=== PATIENT | male | born 1950 | race Caucasian/White ===

== ENCOUNTER 2024-12-24 08:20 | Outpatient (REF) | payer MEDICARE, SELFPAY ==
--- NOTE | ~2024-12-24 | US_ITS ---
CLINICAL HISTORY: EVALUATE VENTRAL HERNIA Targeted ultrasound of epigastric abdominal wall Comparison: None provided Technique: Targeted sonographic imaging, including color Doppler imaging to the area of interest of epigastric abdominal wall at the midline was performed by the rn residential. Multiple business services representative static images were saved for review. Findings/impression: No ventral hernia, mass or fluid collection is visualized. Probable diastasis recti, not well seen, CT abdomen and pelvis can better evaluate if warranted. This document has been electronically signed by: Bertha Pierre MD on 12/25/2024 10:55:06
--- OUTSIDE RECORDS SUMMARY | 2024-12-24 08:45 | XMS_ITS | Encounter Summary ---
Author Organization [facility] Address [address] [place] [address] Phone Care Team Providers Care Plant Associate Name Role Phone Rocky Mora DO Primary Care Provider Encounter Details Date Type Department Care Team (Late st Contact Info) Description 03/08/2022 Telephone [facility] [address] [place] [address] Annemarie Chino MD Social History Tobacco Use Types Packs/Day Years Used Date Smoking Tobacco: Never Smokeless Tobacco: Never Alcohol Use Standard Drinks/Week Comments Yes 0 (1 standard drink = 0.6 oz pure alcohol) Alcoholic Drinks/day: Occasional social drink Sex and Gender Information Value Date Recorded Sex Assigned at Not on file Legal Sex Male 4:51 PM EST Gender Identity Not on file Sexual Orientation Not on file documented as of this encounter Miscellaneous Notes * Telephone Encounter - Saskia Morton - 03/15/2022 8:35 AM EST Patient has been scheduled for Tuesday * Telephone Encounter - Saskia Morton - 03/11/2022 1:39 PM EST Patient is unable to come in on Tuesday. Please advise as to another date. * Telephone Encounter - Saskia Morton - 03/10/2022 2:[address] Miller's schedule is full for all days that she is working at [employer]. Please provide an alternative. * Telephone Encounter - Lucinda Sandoval - 03/08/2022 2:13 PM EST Pts dtr Jahaira called, the pt has been having really bad Tinnitus. His pcp suggested she check in with us because when he foes to stand up is when the tinnitus reacts the worst and it makes his heartfeel like its skipping a beat. His pcp thinks this might be due to s change in his bp when getting up. Jahaira requests that this be sent to both the magnetic resonance technologist provider and so she is aware on Tuesday. Please call her back at # [phone] Thank you documented in this encounter Plan of Treatment Upcoming Encounters Date Type Department Care Team (Late st Contact Info) Description 01/01/2025 11:45 AM EST Office Visit [facility] [address] [address] Yuli John ARNP [address] [address] documented as of this encounter Visit Diagnoses Not on filedocumented in this encounter Care Teams Plant Associate Relationship Specialty Start Date End Date Rocky Mora DO [address] [place] [address] PCP - General Internal Medicine 01/02/24 documented as of this encounter
--- OUTSIDE RECORDS SUMMARY | 2024-12-24 08:45 | XMS_ITS | Clinical Summary ---
Author Organization [address] Address [address] [place] [address] Phone Care Team Providers Care Occupational Therapist Assistants Name Role Phone Zaire Romero MD Primary Care Provider [phone] Surgical History Surgery Date Site/Laterality Comments OTHER SURGICAL HISTORY 05/20/2016 Left PROCEDURE: [facility] CORRECTION [facility]; COMMENT: toes 2-5 left foot OTHER SURGICAL HISTORY 12/22/2017 Right PROCEDURE: [place] CORRECTION [place]; COMMENT: toes 1,2,3,4,5 Social History Tobacco Use Types Packs/Day Years Used Date Smoking Tobacco: Never Smokeless Tobacco: Never Alcohol Use Standard Drinks/Week Comments Not Asked 0 (1 standard drink = 0.6 oz pur e alcohol) Sex and Gender Information Value Date Recorded Sex Assigned at Not on file Legal Sex Male 12:21 AM EST Gender Identity Not on file Sexual Orientation Not on file Obstetrics History Last Filed Vital Signs Vital Sign Reading Time Taken Comments Blood Pressure 122/82 06/21/2023 8:44 AM EDT Pulse - - Temperature - - Respiratory Rate - - Oxygen Saturation - - Inhaled Oxygen Concentration - - Weight 105 kg (232 lb) 06/21/2023 8:44 AM EDT Height 175.3 cm (5' 9 ) 06/21/2023 8:44 AM EDT Body Mass Index 34.26 06/21/2023 8:44 AM EDT Plan of Treatment Health Maintenance Due Date Last Done Comments Colorectal Cancer Screening: Colonoscopy 1950 Pneumococcal Vaccine: 50+ Years (1 of 1 - PCV) 02/11/2002 Zoster Vaccines (1 of 2) 02/11/2002 DTaP,Tdap,and Td Vaccines (2 - Td or Tdap) 02/16/2006 02/17/1996 Falls Risk Assessment 09/13/2023 Hepatitis C Screening 09/13/2023 Medicare Annual Wellness Visit 09/13/2023 Social Influencers of Health Screening 09/13/2023 Depression Screening 02/15/2024 COVID-19 Vaccine ( season) 2024 02/09/2022, 07/17/2021, 12/30/2020, Additional history exists Influenza Vaccine (#1) 2024 , 12/22/2021, 12/10/2020, Additional history exists Hypertension/CHF/CAD Annual BMP Blood Test 05/28/2025 05/28/2024 RSV Immunization Adult Patients (1 - 1-dose 75+ series) 02/11/2027 Cholesterol Screening (Lipid Panel) 05/28/2029 05/28/2024 HIB Vaccines Aged Out No longer eligi ble based on patient's age to complete this topic HPV Vaccines Aged Out No longer eligi ble based on patient's age to complete this topic Hepatitis A Vaccines Aged Out No long er eligible based on patient's age to complete this topic Hepatitis B Vaccines Aged Out No long er eligible based on patient's age to complete this topic IPV Vaccines Aged Out No longer eligi ble based on patient's age to complete this topic MMR Vaccines Aged Out No longer eligi ble based on patient's age to complete this topic Meningococcal ACWY Vaccine Aged Out N o longer eligible based on patient's age to complete this topic Meningococcal B Vaccine Aged Out No l onger eligible based on patient's age to complete this topic RSV Immunization Patients Under 20 months Aged Out No longer eligible based on patient's age to complete this topic Varicella Vaccines Aged Out No longer eligible based on patient's age to complete this topic Procedures Procedure Name Priority Date/Time Associated Diagnosis Comments BASIC METABOLIC PANEL Routine 05/28/2024 8:39 AM EDT Essential hypertension, malignant Ischemic cardiomyopathy Pure hypercholesterolemia LIPID PANEL WITH REFLEX TO DIRECT LDL Routine 05/28/2024 8:39 AM EDT Essential hypertension, malignant Ischemic cardiomyopathy Pure hypercholesterolemia from Last 3 Months or Most Recently Relevant to Health Maintenance Results * (ABNORMAL) Lipid panel with reflex to direct LDL (05/28/2024 8:39 AM EDT) Cholesterol 211(H) 0 - 200 mg/dL LAB CHEMISTRY METHOD 05/28/2024 12:22 PM EDT [facility] Triglycerides 259(H) 0 - 150 mg/dL LAB CHEMISTRY METHOD 05/28/2024 12:22 PM EDT [facility] HDL 47 >=40 mg/dL LAB CHEMISTRY METHOD 05/28/2024 12:22 PM EDT [facility] LDL Calculated 112(H) 0 - 100 mg/dL LAB CHEMISTRY METHOD 05/28/2024 12:22 PM EDT [facility] VLDL Cholesterol Moe 51.8 mg/dL LAB CHEMISTRY METHOD 05/28/2024 12:22 PM EDT [facility] Non HDL Chol. (LDL+VLDL) 164(H) <145 mg/dL LAB CHEMISTRY METHOD 05/28/2024 12:22 PM EDT [facility] Chol/HDL Ratio 4.5(H) 0.0 - 4.4 LAB CHEMISTRY METHOD 05/28/2024 12:22 PM T [facility] Blood Venous blood specimen / Unknown Venipuncture / Unknown 05/28/2024 8:39 AM EDT 05/28/2024 8:39 AM EDT us Evans Davila PAPER COATING SUPERVISOR LAB BLOOD ORDERABLES Final Resul t [facility] [address] [place] [address], * (ABNORMAL) Basic metabolic panel (05/28/2024 8:39 AM EDT) Pathologist [facility] Sodium 138 133 - 145 mmol/L LAB CHEMISTRY METHOD 05/28/2024 12:20 PM EDT [facility] Potassium 4.8 3.5 - 5.5 mmol/L LAB CHEMISTRY METHOD [facility] Chloride 104 96 - 110 mmol/L LAB CHEMISTRY METHOD 05/28/2024 12:20 PM [facility] CO2 28 21 - 32 mmol/L LAB CHEMISTRY METHOD 05/28/2024 12:20 PM [facility] Anion Gap 6 3 - 11 LAB CHEMISTRY METHOD 05/28/2024 12:20 PM [facility] Glucose 108(H) 70 - 100 mg/dL LAB CHEMISTRY METHOD 05/28/2024 12:20 PM [facility] BUN 29(H) 5 - 25 mg/dL LAB CHEMISTRY METHOD 05/28/2024 12:20 PM [facility] Creatinine 1.21 0.70 - 1.30 mg/dL LAB CHEMISTRY METHOD 05/28/2024 12:20 PM [facility] eGFR 64 >=60 mL/min/1. 73m2 LAB CHEMISTRY METHOD 05/28/2024 12:20 PM [facility] Comment:Calculation based on the Chronic Kidney Disease Epidemiology Collaboration (CKD-EPI) equation refit without adjustment for race. BUN/Creatinine Ratio 24.0 LAB CHEMISTRY METHOD 05/28/2024 12:20 PM [facility] Calcium 9.3 8.5 - 10.5 mg/dL LAB CHEMISTRY METHOD 05/28/2024 12:20 PM [facility] Blood Venous blood specimen / Unknown Venipuncture / Unknown 05/28/2024 8:39 AM EDT 05/28/2024 8:39 AM EDT us Evans Davila PAPER COATING SUPERVISOR LAB BLOOD ORDERABLES Final Resul t [facility] [address] [place] [address], from Last 3 Months or Most Recently Relevant to Health Maintenance Insurance [facility] [employer] Care Teams Occupational Therapist Assistants Relationship Specialty Start Date End Date Zaire Romero MD [address] [place] [phone] PCP - General Internal Medicine 12/29/15
--- OUTSIDE RECORDS SUMMARY | 2024-12-24 08:45 | XMS_ITS | Encounter Summary ---
Author Organization [facility] Address [address] [address] Phone Care Team Providers Care Radiator Repairer Name Role Phone Rocky Mora DO Primary Care Provider [phone] Reason for Visit * Reason Comments Med Refill Encounter Details Date Type Department Care Team (Late Contact Info) Description 12/20/2024 Refill [facility] [address] [place] [address] Yuli John ARNP [address] [address] Social History Tobacco Use Types Packs/Day Years [...] on file documented as of this encounter Plan of Treatment Upcoming Encounters Date Type Department Care Team (Late Contact Info) Description 01/01/2025 11:45 AM EST Office Visit [facility] [address] [address] Yuli John ARNP [address] [address] documented as of this encounter Visit Diagnoses Not on filedocumented in this encounter Care Teams Radiator Repairer Relationship Specialty Start Date End Date Rocky Mora DO [address] [place] [address] PCP - General Internal Medicine 01/02/24 documented as of this encounter
--- OUTSIDE RECORDS SUMMARY | 2024-12-24 08:45 | XMS_ITS | Clinical Summary ---
Author Organization [facility] Address [address] [address] Phone Care Team Providers Care Wheel Presser Name Role Phone Rocky Mora DO Primary Care Provider [phone] Allergies No known active allergies Medications omeprazole (PriLOSEC) [address] capsule Take 1 capsule by mouth 1 (one) time each day Active Glucosamine Sulfate 500 MG tablet Active escitalopram (LEXAPRO) 10 MG tablet Take 10 mg by mouth 1 (one) time each day Active atorvastatin (LIPITOR) 20 MG tablet Take 1 tablet by mouth 1 (one) time each day Active aspirin (ST MINERVA) 81 MG EC tablet Take 1 tablet by mouth 1 (one) time each day Active ascorbic acid (VITAMIN C) 500 MG tablet Take 1 tablet by mouth 1 (one) time each day Active [place]-3 Fatty Acids (Fish Oil Concentrate) 1000 MG capsule Take 1 capsule by mouth 1 (one) time each day Active Misc Natural Products (Prostate Health) capsule Take 1 capsule by mouth 1 (one) time each day Active Multiple Vitamins-Rehabilitation Consultant als (CENTRUM ADULTS PO) Take 1 tablet by mouth 1 (one) time each day Active alpha tocopherol (VITAMIN E) 1000 units capsule Take 1 capsule by mouth 1 (one) time each day Active predniSONE (DELTASONE) 10 MG tablet 08/17/19 21 Active clonazePAM (KlonoPIN) 0.5 MG tablet Take 0.5 mg by mouth 1 (one) time each day PRN Active Magnesium 400 MG tablet Take by mouth Active mirtazapine (REMERON) 7.5 MG tablet Take 7.5 mg by mouth every night Active carvedilol (Coreg) 6.25 MG tablet Take 1 tablet (6.25 mg total) by mouth in the morning and 1 tablet (6.25 mg total) in the evening. 180 tablet 3 02/18/19 24 Active lisinopril 40 MG tablet Take 1 tablet (40 mg total) by mouth 1 (one) time each day 90 tablet 3 02/18/19 24 Active spironolactone (ALDACTONE) 50 MG tablet Take 1 tablet (50 mg total) by mouth 1 (one) time each day 90 tablet 3 02/18/19 24 Active hydrOXYzine (ATARAX) 25 MG tablet Take 25 mg by mouth 3 (three) times a day if needed for itching Pt only takes it as needed . Not taking 3 times a day. Active NIFEdipine CC (ADALAT CC) 30 MG 24 hr tablet TAKE 1 TABLET BY MOUTH EVERY DAY BEFORE BREAKFAST 90 tablet 3 12/21/19 25 Active NIFEdipine CC (ADALAT CC) 30 MG 24 hr tablet Take 1 tablet (30 mg total) by mouth 1 (one) time each day before breakfast Do not crush, chew, or split. 90 tablet 3 02/07/20 24 025 Discontinued Active Problems Problem Noted Date Diagnosed Date Chronic kidney disease 03/04/2023 Anxiety disorder 03/16/2022 Gastroesophageal reflux disease 03/16/2022 Hypercholesterolemia 03/16/2022 Hypertensive disorder 04/12/2020 Encounters Date Type Department Care Team Description 12/20/2024 Refill [facility] [address] [address] Yuli John ARNP from Last 3 Months Immunizations Immunization Administration Dates Next Due Td, Unspecified 02/17/1996 Family History Medical History Relation Comments Cancer Father stomach Hypertension Father Hypertension Mother Cancer Sibling 1 stomach Dementia Sibling 2 Hypertension Sibling 3 Relation Status Comments Father Mother Sibling 1 Sibling 2 Sibling 3 Social History Tobacco Use Types Packs/Day Years Used Date Smoking Tobacco: Never Smokeless Tobacco: Never Tobacco Cessation:Counseling Given: Not Answered Alcohol Use Standard Drinks/Week Comments Yes 0 (1 standard drink = 0.6 oz pure alcohol) Alcoholic Drinks/day: Occasional social drink Sex and Gender Information Value Date Recorded Sex Assigned at Not on file Legal Sex Male 4:51 PM EST Gender Identity Not on file Sexual Orientation Not on file Last Filed Vital Signs Vital Sign Reading Time Taken Comments Blood Pressure 118/80 01/02/2024 11:54 AM EST Pulse 71 01/02/2024 11:54 AM EST Temperature - - Respiratory Rate 14 11/29/2018 12:00 PM EDT Oxygen Saturation 95% 01/02/2024 11:54 AM EST Inhaled Oxygen Concentration - - Weight 107 kg (236 lb) 01/02/2024 11:54 AM EST Height 180.3 cm (5' 11 ) 01/05/2021 3:54 PM EST Body Mass Index 32.92 01/05/2021 3:54 PM EST Plan of Treatment Upcoming Encounters Date Type Department Care Team (Late st Contact Info) Description 01/01/2025 11:45 AM EST [facility] Visit [facility] [address] [address] Yuli John ARNP [address] [address] Health Maintenance Due Date Last Done Comments Pneumococcal Vaccine: 50+ Ye ars (1 of 2 - PCV) 02/11/1971 Colorectal Cancer Screening: Annual FOBT 02/11/2001 Colorectal Cancer Screening: Colonoscopy 02/11/2001 Colorectal Cancer Screening: Sigmoidoscopy 02/11/2001 Influenza Vaccine (#1) 2024 Hepatitis B Vaccine Aged Out No longe r eligible based on patient's age to complete this topic Insurance [facility] Medicare [facility] Medicare Care Teams Wheel Presser Relationship Specialty Start Date End Date Rocky Mora DO [address] [place] [address] PCP - General Internal Medicine 01/02/24
--- OUTSIDE RECORDS SUMMARY | 2024-12-24 08:45 | XMS_ITS | Encounter Summary ---
Author Organization [facility] Address [address] [facility] [place] [address] Phone Care Team Providers Care Regional Clinical Research Associate Name Role Phone EmekarosalinaalfredoRocky olivas Primary Care Provider [phone] Encounter Details Date Type Department Care Team (Late st Contact Info) Description 02/21/2024 Procedure Pass [facility] Endoscopy Admitting Dept Virtual Department [address] [place] [address] Social History Tobacco Use Types Packs/Day Years Used Date Smoking Tobacco: Never Smokeless Tobacco: Never Alcohol Use Standard Drinks/Week Comments Not Currently 0 (1 standard drink = 0.6 oz pur e alcohol) 1-2 glasses of wine daily Education Answer Date Recorded Are you interested in more education? Not on ramesh e 11/16/2023 Are you concerned about learning? Not on file 11/16/2023 No 11/16/2023 No 11/16/2023 Digital Access Answer Date Recorded No 11/16/2023 No 11/16/2023 Reliable internet access at home? Not on file 11/16/2023 Device with a working camera? Not on file Intimate Partner Violence Answer Date R ecorded Are you denied basic needs s uch as food, clothing, or medical care? No 02/17/2024 In the past 12 months have y ou been in a relationship with a person who hurts, threatens, or tries to control you? No 02/17/2024 Are you denied basic needs s uch as food, clothing, or medical care? No 02/17/2024 In the past 12 months have y ou been in a relationship with a person who hurts, threatens, or tries to control you? No 02/17/2024 Sex and Gender Information Value Date Recorded Sex Assigned at Not on file Legal Sex Male 5:42 PM EST Gender Identity Not on file Sexual Orientation Not on file documented as of this encounter Plan of Treatment Not on file documented as of this encounter Visit Diagnoses Not on filedocumented in this encounter Care Teams Regional Clinical Research Associate Relationship Specialty Start Date End Date Rocky Mora DO [address] [place] [id number] PCP - General Internal Medicine 02/21/24 documented as of this encounter Additional Source Comments The information contained in this document represents components of the legal health record. It is not the complete legal health record.[facility]
--- OUTSIDE RECORDS SUMMARY | 2024-12-24 08:45 | XMS_ITS | Clinical Summary ---
Author Organization [facility] Address [address] [address] Phone Care Team Providers Care Registered Client Associate Name Role Phone Humphrey Velázquez DO Primary Care Provider [phone] Allergies No known active allergies Medications atorvastatin (LIPITOR) 20 MG tablet Take 1 tablet by mouth every morning. 4 Active mirtazapine (REMERON) 7.5 MG tablet Take 7.5 mg by mouth nightly at bedtime. 4 Active escitalopram oxalate (LEXAPRO) 10 MG tablet Take 10 mg by mouth daily. 4 Active NIFEdipine (ADALAT CC) 30 MG 24 hr tablet Take 30 mg by mouth daily. 4 Active lisinopril (PRINIVIL,ZESTRIL) 40 MG tablet Take 1 tablet by mouth every morning. 4 Active spironolactone (ALDACTONE) 50 MG tablet Take 1 tablet by mouth every morning. 4 Active omeprazole (PRILOSEC) 40 MG capsule Take 40 mg by mouth daily. 4 Active aspirin 81 mg chewable tablet Take 81 mg by mouth daily. Active clonazePAM (KLONOPIN) 0.5 MG disintegrating tablet Take 0.5 mg by mouth 2 (two) times a day as needed for anxiety. Active hydrOXYzine (ATARAX) 25 MG tablet Take 25 mg by mouth 3 (three) times a day as needed for itching. Active Medication-Free Text Take 1 tablet by mouth daily. prevagan Active MAGNESIUM ORAL Take 1 tablet by mouth daily. Active glucosamine sulfate (GLUCOSAMINE ORAL) Take 1 tablet by mouth daily. Active vitamin E acetate (VITAMIN E ORAL) Take 1 capsule by mouth daily. Active ascorbic acid (VITAMIN C ORAL) Take 1 tablet by mouth daily. Active docosahexaenoic acid/epa (FISH OIL ORAL) Take 1 capsule by mouth daily. Active Medication-Free Text Take 1 tablet by mouth daily. allertec Active Active Problems No known active problems Social History Tobacco Use Types Packs/Day Years Used Date Smoking Tobacco: Never Smokeless Tobacco: Never Tobacco Cessation:Counseling Given: Not Answered Alcohol Use Standard Drinks/Week Comments Not Currently [...] Sign Reading Time Taken Comments Blood Pressure 132/85 02/21/2024 11:15 AM EST Pulse 81 02/21/2024 11:15 AM EST Temperature 36 C (96.8 F) 02/21/2024 11:03 AM EST Respiratory Rate 15 02/21/2024 11:15 AM EST Oxygen Saturation 96% 02/21/2024 11:15 AM EST Inhaled Oxygen Concentration - - Weight 105.7 kg (233 lb) 02/17/2024 11:53 AM EST Height 177.8 cm (5' 10 ) 02/17/2024 11:53 AM EST Body Mass Index 33.43 02/17/2024 11:53 AM EST Plan of Treatment Health Maintenance Due Date Last Done Comments Adult Td,Tdap Booster 1950 CREATININE LEVEL 1950 LIPID PANEL 1950 POTASSIUM LEVEL 1950 DEPRESSION SCREENING 1964 HEPATITIS C SCREENING 02/11/1970 COLOGUARD 02/11/1997 FIT TEST 02/11/1997 FOBT 02/11/1997 SIGMOIDOSCOPY 02/11/1997 VIRTUAL COLONOSCOPY 02/11/1997 PNEUMOCOCCAL VACCINES (50+ years) (1 of 1 - PCV) 02/11/2002 ZOSTER VACCINES (1 of 2) 02/11/2002 INFLUENZA VACCINE (#1) 2024 , 12/22/2021, 12/10/2020, Additional history exists COVID-19 VACCINE (2024- season) 2024 02/09/2022, 07/17/2021, 12/30/2020, Additional history exists RSV VACCINE (1 - 1-dose 75+ series) 02/11/2027 COLONOSCOPY 02/20/2034 02/21/2024 COLORECTAL CANCER SCREENING 02/20/2034 SMOKING STATUS SCREENING (Once After 26 Yrs) Completed 02/21/2024 HEPATITIS A VACCINES Aged Out No long er eligible based on patient's age to complete this topic HIB VACCINES Aged Out No longer eligi ble based on patient's age to complete this topic IPV VACCINES Aged Out No longer eligi ble based on patient's age to complete this topic MENINGOCOCCAL VACCINES (ACWY) Aged Out No longer eligible based on patient's age to complete this topic MENINGOCOCCAL VACCINES (B) Aged Out N o longer eligible based on patient's age to complete this topic Medical Devices Not on file Procedures Procedure Name Priority Date/Time Associated Diagnosis Comments ENDOSCOPY, COLON 02/21/2024 10:4 0 AM EST from Last 3 Months or Most Recently Relevant to Health Maintenance Results * ENDOSCOPY, COLON (02/21/2024 10:40 AM EST) Narrative Transcriptions Alphonso Jorge MD - 02/21/2024 10:40 AM EST [facility] Patient Name: Seven Hill Attending MD:: ALPHONSO JORGE MD, Procedure Date: 02/21/2024 10:40 AM Date of : 1950 Age: 74 Admit Type: Outpatient Gender: Male Room: [place] [address] Referring MD: HUMPHREY VELÁZQUEZ Exam Type: Colonoscopy Indications: Screening for colorectal malignant neoplasm, Last colonoscopy 10 years ago Medications: Monitored Anesthesia Care Procedure: Informed consent was obtained from the patientafter discussion of the indications, limitations, alternatives, benefits, and risks of the procedure. Risks specifically discussed include but are not limited to medication reactions, missed lesions, bleeding, perforation, or the need for emergent surgery. Throughout the procedure, the patient's blood pressure, pulse, end-tidal CO2, and oxygensaturations were monitored continuously. The Olympus adult variable colonoscope [id number] #5 was introduced through the anus and advanced to the cecum, identified by the appendiceal orifice. The colonoscopy was performed without difficulty. The patient tolerated the procedure well. The qualityof the bowel preparation was good. Anatomicallandmarks were photographed. Complications: No immediate complications. Estimated blood loss:None. Findings: The perianal and digital rectal examinations were normal. 2 plus internal hemorrhoids were noted. Many small-mouthed diverticula were found in the sigmoid colon. The rectum, recto-sigmoid colon, sigmoid colon, descending colon, splenic flexure, transversecolon, hepatic flexure, ascending colon, cecum,appendiceal orifice, ileocecal valve and rectum (onretroflexion) appeared normal. Impression: - Diverticulosis in the sigmoid colon. - The rectum (on retroflexion), rectum, sigmoidcolon, descending colon, splenic flexure, transversecolon, hepatic flexure, ascending colon, cecum,recto-sigmoid colon, ileocecal valve and appendiceal orifice are normal. - No specimens collected. Recommendation: - Discharge patient to home. - High fiber diet. - Continue present medications. - Repeat discussion about colonoscopy in 10 yearsfor screening purposes. - You have diverticulosis so please eat a highfiber diet. ALPHONSO JORGE MD 02/21/2024 11:03:23 AM This report has been signed electronically. Number of Addenda: 0 Note Initiated On: 02/21/2024 10:40 AM Procedure Code(s): --- Professional --- 08484, Colonoscopy, flexible; diagnostic, including collection of specimen(s) by brushing or washing, when performed (separateprocedure) --- Technical --- 93883, Colonoscopy, flexible; diagnostic, including collection of specimen(s) by brushing or washing, when performed (separateprocedure) Diagnosis Code(s): --- Professional --- Z12.11, Encounter for screening for malignantneoplasm of colon K57.30, Diverticulosis of large intestine without perforation or abscess without bleeding --- Technical --- Z12.11, Encounter for screening for malignantneoplasm of colon K57.30, Diverticulosis of large intestine without perforation or abscess without bleeding CPT copyright 2021 [employer]. All rights reserved. The codes documented in this report are preliminary and upon air compressor mechanic reviewmay be revised to meet current compliance requirements. Procedure Date: 02/21/2024 10:40:19 AM [address] [place] [address] Humphrey Velázquez DO GI PROCEDURE ORDERABLES Final Result from Last 3 Months or Most Recently Relevant to Health Maintenance Insurance MEDICARE PART A & B MEDICARE PART A & B MEDICARE PART A & B MEDICARE PART A & B MEDICARE PART A & B MEDICARE PART A & B Member Subscriber Plan / Payer ( fective 2017-Present) Name:Seven Hill Member ID:[id number] Relation to Subscriber:Self Name:Seven Hill Subscriber ID:[id number] Payer ID:[id number] Group ID:Not on file Type:Medicare Address: [facility] [employer] [email or web address] [facility] [address] [place] [address] Care Teams Registered Client Associate Relationship Specialty Start Date End Date Gabrieldeisy Humphrey [address] [place] [address] [address] [place] [address] PCP - General Internal Medicine 02/21/24 Additional Source Comments The information contained in this document represents components of the legal health record. It is not the complete legal health record.[facility]
== END 2024-12-24 08:21 | disposition home or self-care (01) ==
LOC: HO.US 08:20
PROVIDERS: PCP Internal Medicine; Visit Provider Internal Medicine
DX: K43.9 Ventral hernia without obstruction or gangrene (principal)
CPT/HCPCS: 76705

== ENCOUNTER → 2024-12-24 08:30 | Outpatient (BNV) | payer MEDICARE, SELFPAY | PROVIDERS: PCP Internal Medicine; Visit Provider Radiology Diagnostic Radiology | DX: K43.9 Ventral hernia without obstruction or gangrene (principal) | CPT/HCPCS: 76705 ==

== ENCOUNTER 2024-12-27 09:08 | Outpatient (AMB) | payer MEDICARE, SELFPAY ==
--- NOTE | 2024-12-27 09:23 | A.OFFVIS_ITS ---
Vital Signs 12/27/24 09:32 Height 5 ft 11 in Weight 240 lb BMI 33.5 Intake Visit Reasons: Ventral hernia Intake Note: Patient presents for an assessment for ventral hernia. Pt c/o; reports no changes in bowel habits, reports good appetite, ventral hernia, reports back pain when walking. DI: Abd US 12/25/2024 Detective Bureau Chief Required: Yes Detective Bureau Chief Language: Upper Sorbian Detective Bureau Chief Services: Detective Bureau Chief Offered & Declined Accompanied by: Spouse Allergies No Known Allergies Allergy (Verified 12/27/24 09:33) Medication List - Last Reconciled 12/27/24 by Monty Burgos MD ascorbate calcium (vitamin C) 500 mg PO DAILY aspirin (Adult Low Dose Aspirin) 81 mg PO DAILY atorvastatin 40 mg PO DAILY bisacodyl 20 mg PO BEDTIME escitalopram oxalate 15 mg PO DAILY glucosamine HCl 500 mg PO DAILY krill oil mg PO lisinopril 40 mg PO DAILY magnesium 200 mg PO DAILY mirtazapine 7.5 mg PO BEDTIME nifedipine ER 30 mg PO QAM omega 6-kgn-ikx-fish oil 60-90-500 mg (Fish Oil) 1 cap PO DAILY omeprazole 40 mg PO DAILY polyethylene glycol 3350 17 grams PO DAILY vei-Mvojvw-cdut-pzkz-V8-Q8-Zn 30-25-62.5 mg (trip.me Men's) caps PO spironolactone 50 mg PO DAILY vitamin E (dl, acetate) 45 mg PO DAILY HPI HPI Ventral hernia: Details: 74 year old male referred for a question of an epigastric hernia. He has noticed this lump on his upper abdomen for many years. He denies any GI complaints. He denies any pain or tenderness on the area. [facility] Medical History (Updated 12/27/24 @ 09:47 by Monty Burgos MD) Diastasis recti Surgical History History of colonoscopy Hx of surgical procedure Hx of surgical procedure Social History Alcohol intake: current Alcohol intake frequency: 0-2 drinks per day Patient Tobacco Use Status: Never used Tobacco Review of Systems Const Denies chills and Denies fever(s) Card Denies chest pain, Denies dyspnea and Denies dyspnea on exertion Resp Denies cough, Denies dyspnea and Denies dyspnea on exertion GI Denies hematochezia and Denies change in bowel habits Denies hematuria and Denies difficulty urinating Musc Denies back pain and Denies limited range of motion Neuro Denies focal weakness and Denies convulsions Psych Denies depression and Denies mood swings Physical Exam Vital Signs: BMI result Body Mass Index 33.5 Const Other: Obese General: comfortable and no acute distress Orientation/consciousness: patient oriented x3 Neck Neck: Yes no lymphadenopathy Resp Auscultation: clear to auscultation bilaterally Cardio Rhythm: regular rhythm GI Other: Diastasis recti in the upper abdomen, no hernia Palpation (GI): Soft to palpation, nontender and no guarding Neuro General: patient oriented x3 Assessment & Plan Assessment & Plan (1) Diastasis recti: Code(s): M62.08 - Separation of muscle (nontraumatic), other site Category: Medical Plan: 74-year-old male referred for a protuberance of the upper abdomen. This has actually a diastasis recti. I explained to him and his that this has not require any surgical intervention. He does not have any hernia. I have reviewed his ultrasound and this does not show any hernia as well I did advise him on the benefits of weight loss as his body mass index is high. He can follow up on a p.r.n. basis. Coding Level of Care Code New Pt Level 3 (30217) Diagnoses Diastasis recti M62.08
[2024-12-27 09:32] VITALS: BMI 33.5
--- OUTSIDE RECORDS SUMMARY | 2024-12-27 09:59 | XMS_ITS | Clinical Summary ---
Author Organization [facility] Address [address] [address] Phone Care Team Providers Care Maintenance Person Name Role Phone Rocky Mora DO Primary Care Provider [phone] Allergies No known active allergies Medications omeprazole [...] mouth 1 (one) time each day Active [place]-3 Fatty Acids (Fish Oil Concentrate) 1000 MG capsule Take 1 capsule by mouth 1 (one) time each day Active Misc Natural Products (Prostate Health) capsule Take 1 capsule by mouth 1 (one) time each day Active Multiple Vitamins-Insurance Biller als (CENTRUM ADULTS PO) Take 1 tablet [...] 12/20/2024 Refill [facility] [address] [address] Yuli John ARNP from Last 3 Months [...] Office Visit [facility] [address] [address] Yuli John ARNP [address] [address] Health Maintenance Due Date Last Done Comments Pneumococcal Vaccine: 50+ Ye ars (1 of 2 - PCV) 02/11/1971 Colorectal Cancer Screening: Annual FOBT 02/11/2001 Colorectal Cancer Screening: Colonoscopy 02/11/2001 Colorectal Cancer Screening: Sigmoidoscopy 02/11/2001 Influenza Vaccine (#1) 2024 Hepatitis B Vaccine Aged Out No longe r eligible based on patient's age to complete this topic Insurance [facility] Medicare [facility] Medicare Care Teams Maintenance Person Relationship Specialty Start Date End Date Rocky Mora DO [address] [place] [address] PCP - General Internal Medicine 01/02/24
--- OUTSIDE RECORDS SUMMARY | 2024-12-27 10:02 | XMS_ITS | Encounter Summary ---
Author Organization [facility] Address [address] [place] [id number] Phone Care Team Providers Care Merchandise Shopper Name Role Phone EmekarosalinaalfredoRocky olivas Primary Care Provider [phone] Encounter Details Date Type Department Care Team (Late st Contact Info) Description 02/21/2024 Procedure Pass [facility] Endoscopy Admitting Dept Virtual Department [address] [place] [address] Social History Tobacco Use Types Packs/Day Years [...] on filedocumented in this encounter Care Teams Merchandise Shopper Relationship Specialty Start Date End Date Rocky Mora DO [address] [place] [address] PCP - General Internal Medicine 02/21/24 documented as of this encounter Additional Source Comments The information contained in this document represents components of the legal health record. It is not the complete legal health record.[facility]
--- OUTSIDE RECORDS SUMMARY | 2024-12-27 10:02 | XMS_ITS | Encounter Summary ---
Author Organization [facility] Address [address] [place] [address] Phone Care Team Providers Care Molder Setter Name Role Phone Rocky Mora DO Primary Care Provider [phone] Encounter Details Date Type Department Care Team (Late st Contact Info) Description 03/08/2022 Telephone [facility] [address] [place] [address] Annemarie Chino MD Social History [...] all days that she is working at [employer]. Please provide an alternative. * Telephone Encounter [...] that this be sent to both the electrophonic engineer provider and so she is aware on Tuesday. Please call her back at # [phone] Thank you documented in this encounter Plan of Treatment Upcoming Encounters Date Type Department Care Team (Late st Contact Info) Description 01/01/2025 11:45 AM EST Office Visit [facility] [address] [address] Yuli John ARNP [address] [address] documented as of this encounter Visit Diagnoses Not on filedocumented in this encounter Care Teams Molder Setter Relationship Specialty Start Date End Date Rocky Mora DO [address] [place] [address] PCP - General Internal Medicine 01/02/24 documented as of this encounter
--- OUTSIDE RECORDS SUMMARY | 2024-12-27 10:02 | XMS_ITS | Clinical Summary ---
Author Organization [address] Address [address] [place] [address] Phone Care Team Providers Care National Flatbed Truck Driver Name Role Phone Zaire Romero MD Primary Care Provider [phone] Surgical History Surgery Date Site/Laterality Comments OTHER SURGICAL HISTORY 05/20/2016 Left PROCEDURE: MI CORRECTION HAMMERTOE; COMMENT: toes 2-5 left foot OTHER SURGICAL HISTORY 12/22/2017 Right PROCEDURE: MI CORRECTION [place]ERT[place]; COMMENT: toes 1,2,3,4,5 Social History [...] LAB CHEMISTRY METHOD 05/28/2024 12:22 PM EDT [facility] Triglycerides 259(H) 0 - 150 mg/dL LAB CHEMISTRY METHOD 05/28/2024 12:22 PM EDT [facility] HDL 47 >=40 mg/dL LAB CHEMISTRY METHOD 05/28/2024 12:22 PM EDT [facility] LDL Calculated 112(H) 0 - 100 mg/dL LAB CHEMISTRY METHOD 05/28/2024 12:22 PM EDT [facility] VLDL Cholesterol Moe 51.8 mg/dL LAB CHEMISTRY METHOD 05/28/2024 12:22 PM EDT [facility] Non HDL Chol. (LDL+VLDL) 164(H) <145 mg/dL LAB CHEMISTRY METHOD 05/28/2024 12:22 PM EDT [facility] Chol/HDL Ratio 4.5(H) 0.0 - 4.4 LAB CHEMISTRY METHOD 05/28/2024 12:22 PM T [facility] Blood Venous blood specimen / Unknown Venipuncture / Unknown 05/28/2024 8:39 AM EDT 05/28/2024 8:39 AM EDT us Evans Davila [facility] LAB BLOOD ORDERABLES Final Resul t [facility] [address] [place] [address], * (ABNORMAL) Basic metabolic panel (05/28/2024 8:39 AM EDT) Pathologist [facility] Sodium 138 133 - 145 mmol/L LAB CHEMISTRY METHOD 05/28/2024 12:20 PM EDT [facility] Potassium 4.8 3.5 - 5.5 mmol/L LAB CHEMISTRY METHOD [facility] Chloride 104 96 - 110 mmol/L LAB CHEMISTRY METHOD 05/28/2024 12:20 PM [facility] CO2 28 21 - 32 mmol/L LAB CHEMISTRY METHOD 05/28/2024 12:20 PM [facility] Anion Gap 6 3 - 11 LAB CHEMISTRY METHOD 05/28/2024 12:20 PM [facility] Glucose 108(H) 70 - 100 mg/dL LAB CHEMISTRY METHOD 05/28/2024 12:20 PM [facility] BUN 29(H) 5 - 25 mg/dL LAB CHEMISTRY METHOD 05/28/2024 12:20 PM [facility] Creatinine 1.21 0.70 - 1.30 mg/dL LAB CHEMISTRY METHOD 05/28/2024 12:20 PM [facility] eGFR 64 >=60 mL/min/1. 73m2 LAB CHEMISTRY METHOD 05/28/2024 12:20 PM [facility] Comment:Calculation based on the Chronic Kidney Disease Epidemiology Collaboration (CKD-EPI) equation refit without adjustment for race. BUN/Creatinine Ratio 24.0 LAB CHEMISTRY METHOD 05/28/2024 12:20 PM [facility] Calcium 9.3 8.5 - 10.5 mg/dL LAB CHEMISTRY METHOD 05/28/2024 12:20 PM [facility] Blood Venous blood specimen / Unknown Venipuncture / Unknown 05/28/2024 8:39 AM EDT 05/28/2024 8:39 AM EDT us Evans Davila [facility] LAB BLOOD ORDERABLES Final Resul t [facility] [address] [place] [address], from Last 3 Months or Most Recently Relevant to Health Maintenance Insurance [facility] [employer] MEDICARE Care Teams National Flatbed Truck Driver Relationship Specialty Start Date End Date Zaire Romero MD [address] [place] [phone] PCP - General Internal Medicine 12/29/15
== END 2024-12-27 09:46 | disposition home or self-care (01) ==
LOC: HO.HGS 09:09
PROVIDERS: PCP Internal Medicine; Visit Provider Surgery
DX: M62.08 Separation of muscle (nontraumatic), other site (principal)
CPT/HCPCS: 99203

== ENCOUNTER → 2024-12-27 09:08 | Outpatient (BNVA) | payer MEDICARE, SELFPAY | PROVIDERS: PCP Internal Medicine; Visit Provider Surgery | DX: M62.08 Separation of muscle (nontraumatic), other site (principal) | CPT/HCPCS: 99202 ==